=== PATIENT | female | born 1940 | race Caucasian/White ===

== ENCOUNTER 2017-04-19 12:41 | Emergency (ER) | payer MEDICARE | END 2017-04-19 14:43 | disposition home or self-care (01) | LOC: ER 12:41 | DX: M54.16 Radiculopathy, lumbar region (principal); E11.9 Type 2 diabetes mellitus without complications; E03.9 Hypothyroidism, unspecified; Z90.49 Acquired absence of other specified parts of digestive tract; Z98.51 Tubal ligation status; Z98.42 Cataract extraction status, left eye; Z98.41 Cataract extraction status, right eye; Z87.891 Personal history of nicotine dependence; Z98.890 Other specified postprocedural states | CPT/HCPCS: 99284 ==

== ENCOUNTER 2017-08-12 08:39 | Day surgery (SDC) | payer MEDICARE ==
[~2017-08-12 08:39] MED LIST: DEXAMETHASONE SOD PHOS 4 MG/ML VIAL; LIDOCAINE 1% PF 2 ML VIAL. ID; MORPHINE SULFATE 2 MG/ML DISP.SYRIN. IV; ONDANSETRON PF 4 MG/2 ML VIAL. IV; PROCHLORPERAZINE 10 MG/2 ML VIAL. IV; fentaNYL PF VIAL 100 MCG/2 ML VIAL IV; methylPREDNISolone ACETATE 80 MG/ML VIAL.
[2017-08-12] MEDS ORDERED: ONDANSETRON PF 4 MG/2 ML VIAL. (08:43)
[2017-08-12] MEDS ORDERED: LIDOCAINE 2% PF Vial for OR 5 ML VIAL. (08:43)
[2017-08-12] MEDS ORDERED: DEXAMETHASONE SOD PHOS 20 MG/5 ML VIAL. (08:43)
[2017-08-12] MEDS ORDERED: fentaNYL PF VIAL 100 MCG/2 ML VIAL (08:43)
[2017-08-12] MEDS ORDERED: PROPOFOL 20 ML IV (08:43)
[2017-08-12 09:14] LABS: POC GLUCOSE 89 mg/dL (70-99)
[2017-08-12] MEDS: IV RINGERS,LACTATED 1000ML 1,000 ML IV (09:19)
[2017-08-12] MEDS ORDERED: PHENYLEPHRINE in 0.9% NACL PF 1 MG/10 ML SYRINGE. IV (11:00)
[2017-08-12] MEDS ORDERED: SEVOFLURANE 61 TO 120 MINUTES. IH (11:22)
[2017-08-12] MEDS: BUPIVACAINE 0.5% 50 ML VIAL. (11:44)
[2017-08-12] MEDS: LIDOCAINE 1% PF 30 ML VIAL. (11:45)
== END 2017-08-12 14:38 | disposition home or self-care (01) ==
LOC: SURG 08:39
DX: M20.31 Hallux varus (acquired), right foot (principal); M20.41 Other hammer toe(s) (acquired), right foot; I10 Essential (primary) hypertension; E66.9 Obesity, unspecified; Z68.32 Body mass index [BMI] 32.0-32.9, adult; E78.00 Pure hypercholesterolemia, unspecified; I48.91 Unspecified atrial fibrillation; M19.90 Unspecified osteoarthritis, unspecified site; Z90.49 Acquired absence of other specified parts of digestive tract; Z98.51 Tubal ligation status; Z98.890 Other specified postprocedural states; Z98.42 Cataract extraction status, left eye; Z98.41 Cataract extraction status, right eye; Z96.1 Presence of intraocular lens; E03.9 Hypothyroidism, unspecified; F41.9 Anxiety disorder, unspecified; Z87.891 Personal history of nicotine dependence; Z96.653 Presence of artificial knee joint, bilateral
CPT/HCPCS: 28285; 73630; 82962; A7015; C1713; J0690; J1040; J1100; J2001; J2370; J2405; J2704; J3010; J3490; J7120

== ENCOUNTER → 2020-08-24 | Outpatient (CLI) | payer MEDICARE ==
[2018-02-10 15:00] VITALS: BP 100/48
[~2020-08-24] MED LIST changes: +AMIO200T6 PO; +AMOX1TAB58 PO; +ASCO100019 PO; +ASCO500T4 PO; +ASPI-482 PO; +ATOR10TA PO; +BIOT5000 PO; -DEXAMETHASONE SOD PHOS 4 MG/ML VIAL; +DIPH25CA58 PO; +ERYT30GE2 TP; +ESTR30CR VG; +FISH1CAP PO; +FLEC100T PO; +FLUT9.9S NS; +GABA300C18 PO; +GADOTERATE 7.5 MMOL/15ML VIAL. IVP ONE; +GLUC1TAB71 PO; +HYDR-2761 PO; +HYDR-2769 PO; +LACT1CAP19 PO; +LEVO200T PO; -LIDOCAINE 1% PF 2 ML VIAL. ID; +LINE600T12 PO; +LORC10TA PO; +MELA10CA PO; +MELATONIN PO; +METAMUCIL425 GM PO; +METH4TAB2 PO; -MORPHINE SULFATE 2 MG/ML DISP.SYRIN. IV; +MULT-246 PO; +NAPR-514 PO; +OMEP40CA7 PO; -ONDANSETRON PF 4 MG/2 ML VIAL. IV; +OXYB-36 PO; -PROCHLORPERAZINE 10 MG/2 ML VIAL. IV; +TRAM50TA PO; +UBIQ100C2 PO; +VITA150T PO; +WARF2.5T2 PO; +[UNRECOGNIZED DRUG - REMARK] PO; +[UNRECOGNIZED DRUG - REMARK] PO; -fentaNYL PF VIAL 100 MCG/2 ML VIAL IV; -methylPREDNISolone ACETATE 80 MG/ML VIAL.
[2020-08-24 14:02] LABS: CREATININE 0.6 mg/dL (0.6-1.0); GFR 96.7
--- NOTE | 2020-08-24 15:54 | RAD ---
EXAMINATION: MRI abdomen without and with IV contrast. INDICATION: Pancreatic cyst. Further evaluation. TECHNIQUE: Multiplanar multisequence MRI of the abdomen performed with and without IV contrast. COMPARISON: CT abdomen and pelvis dated 05/06/2020 and multiple priors. FINDINGS: Normal size and morphology of the liver with homogeneous enhancement. No suspicious focal h epatic lesion. No steatosis or deposition. Cholecystectomy. Central intrahepatic and extrahepatic rahul iary ductal dilation with smooth tapering distally, most likely secondary to post cholecystectomy sta tus. Common bile duct measures up to 1.3 cm. Unremarkable spleen. Diffuse pancreatic parenchymal atrophy with loss of normal bright T1 signal intensity heterogeneous e nhancement, compatible with sequelae of chronic pancreatitis. Innumerable variable size cystic lesion s scattered throughout the pancreas, the largest in the pancreatic head measures 2.0 cm (series 9 chacorta ge 20), some of these cysts demonstrate communication with normal caliber main pancreatic duct. No di screte soft tissue component or solid masses. No adrenal nodule. Both kidneys demonstrate normal symmetric enhancement. Right lower pole 1.4 cm sim ple renal cyst, unchanged. Mild bilateral hydronephrosis and hydroureter to the level of the imaged b ladder, likely new in comparing with prior CT exam report. There is an ill-defined 5.8 x 6.0 cm right retroperitoneal mass with heterogeneous T2 and T1 signal intensity with dark T2 and bright T1 rim wi th diffusion restriction (series 7 image 26). This lesion is probably new in comparing with prior CT exam report. No bowel dilation. No lymphadenopathy in the abdomen by size criteria. Nonspecific nonenlarged upper abdominal lymph nodes, likely reactive. No ascites. Normal caliber abdominal aorta. Mesenteric arteri es and portal vein are patent. No suspicious osseous lesion. Posterior hardware fusion in the lumbar spine. Unremarkable visualized lung bases. IMPRESSION: 1. Sequelae of chronic pancreatitis with innumerable variable size cystic lesions scattered throughou t the pancreas measuring up to 2.0 cm; some of which demonstrate communication with normal caliber ma in pancreatic duct. 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 Recommend annual follow-up with MRI/MRCP. 2. Mild bilateral hydronephrosis with dilated imaged ureters and asymmetric delayed left renal excret ion, new since prior exam. Findings may relate to chronic outlet obstruction. Clinical correlation is advised. Recommend urology consultation. 3. Right retroperitoneal 6 cm mass with heterogeneous signal intensity, suggesting of an evolving hem atoma. This mass is new since May 2020. Consider correlation with recent trauma or intervention. Re commend follow-up in 2-[address] abdomen to ensure resolution. 4. Other chronic/incidental findings, as described above. Electronically signed by: David Alarcon MD (08/24/2020 3:52 PM) [facility]
== END ==
LOC: MRI 13:27
PROVIDERS: ATTEND Surgery
DX: K86.1 Other chronic pancreatitis (principal); N13.30 Unspecified hydronephrosis; K86.2 Cyst of pancreas; Z90.49 Acquired absence of other specified parts of digestive tract
CPT/HCPCS: 36415; 74183; 82565; 84520; A9575

== ENCOUNTER 2020-10-22 16:10 | Emergency (ER) | payer MEDICARE ==
[~2020-10-22] VITALS: Ht 170.2 cm; Wt 102.0 kg
[~2020-10-22 16:10] MED LIST changes: -GADOTERATE 7.5 MMOL/15ML VIAL. IVP ONE
[2020-10-22 16:37] LABS: BASO % 0 % (0-3); EOS # 0.2 x10^3/uL (0.0-0.7); EOS % 4 % (0-3); HEMATOCRIT 24.7 % (36.0-47.0); HEMOGLOBIN 8.2 g/dL (12.0-15.5); LYMPH # 0.7 x10^3/uL (1.0-4.8); LYMPH % 15 % (24-48); MEAN CORPUSCULAR HEMOGLOBIN 31 pg (25-35); MEAN CORPUSCULAR HGB CONC 33 g/dL (31-37); MEAN CORPUSCULAR VOLUME 92 fL (79-100); MONO # 0.6 x10^3/uL (0.0-1.1); MONO % 14 % (0-9); NEUT # 3.1 x10^3/uL (1.8-7.7); NEUT % 66 % (31-73); PLATELET COUNT 279 x10^3/uL (140-400); RED BLOOD COUNT 2.69 x10^6/uL (3.50-5.40); RED CELL DISTRIBUTION WIDTH 14.4 % (11.5-14.5); WHITE BLOOD COUNT 4.6 x10^3/uL (4.0-11.0)
[2020-10-22 16:54] LABS: CALCIUM 8.2 mg/dL (8.5-10.1); CREATININE 0.7 mg/dL (0.6-1.0); GFR 80.9; POTASSIUM 4.5 mmol/L (3.5-5.1)
[2020-10-22 16:59] LABS: ALBUMIN 2.6 g/dL (3.4-5.0); TOTAL BILIRUBIN 0.3 mg/dL (0.2-1.0); TOTAL PROTEIN 5.3 g/dL (6.4-8.2)
[2020-10-22] MEDS ORDERED: IOHEXOL 350 MG/ML 100 ML VIAL. IV ONE (17:00)
[2020-10-22] MEDS ORDERED: CONTRAST GIVEN. MC PRN (17:00)
[2020-10-22 17:07] LABS: PROTHROMBIN TIME PATIENT 14.1 SEC (11.7-14.0)
[2020-10-22 17:33] LABS: CREATININE ISTAT 0.6 mg/dL (0.5-1.4); HEMOGLOBIN ISTAT 7.8 g/dL (12-15); ION CA ISTAT 1.07 mmol/L (1.13-1.32)
[2020-10-22 17:44] LABS: D-DIMER 0.57 ug/mlFEU (0.00-0.50)
--- NOTE | 2020-10-22 17:52 | PDOC2 ---
CONSULT Date of Consult Date of Consult DATE: 10/22/20 TIME: 17:51 Reason for Consult Reason for Consult: VB History of Present Illness Reason for Visit: The pt is a 80y s/p colpocleisis who presented to the ER with heavy vaginal bleeding. The pt underwent the procedure on 09/28/[address] Gonzalez. She is on Eliquis for A-fib. They stopped the med a few days prior to the procedure. After the procedure She restarted the med a few days later. A couple wks after the surgery she called the office b/c she was having heavy bleeding than expected. She was seen in the office and her exam was reassuring. That Friday she presented to the ER with heavy vaginal bleeding. During her 3 day hospital course, she required packing and received 2U pRBC. During the hospital course they stopped her Eliquis. When she was d/luis a Sun, she was told to not restart the Eliquis until Fri. She had a hospital f/u with Dr. Gonzalez on Friday where her packing was removed. Since the ER she has had minimal bleeding, until this am when she began to spot. Around noon she began to have heavy bleeding. In the ER she was found to have a Hgb of 8.2. She has continued to have brisk bleeding in the ER. Her vagina was packed. Discussed stabilizing and transferring with the ER. The ER contacted Emmanuel Gonzalez who recommended CT angio. On the way to the CT the pt was have SBP below 60, but was maintained her LOC. PMH: AF, DM PSH: BTL, back, nasal, pacemaker, appy, gagan, tonsil, eye All: NKDA OBHx: 3 x TSVD Manager Science: LMP ~50y No h/o ERT/HRT SH: no tob, no EtOH FH: Alzheimers, AF, DM Past Medical History Cardiovascular: AFIB, HTN, Hyperlipidemia Family History Family History: Other Social History ALCOHOL: none Drugs: None Current Medications Current Medications Current Medications Iohexol (Omnipaque 350 Mg/ml) 90 ml 1X ONCE IV Last administered on 10/22/20at 17:00; Start 10/22/20 at 17:00; Stop 10/22/20 at 17:01; Status DC Info (CONTRAST GIVEN -- Rx MONITORING) 1 each PRN DAILY PRN MC SEE COMMENTS; Start 10/22/20 at 17:00; Stop 10/24/20 at 16:59 Active Scripts Active Augmentin 500-125 Tablet (Amoxicillin/Potassium Clav) 1 Each Tablet 1 Tab PO BID 14 Days Zyvox (Linezolid) 600 Mg Tablet 600 Mg PO BID 14 Days Culturelle (Lactobacillus Rhamnosus Gg) 1 Each Cap.sprink 1 Cap PO BID 14 Days Tramadol Hcl 50 Mg Tablet 50 Mg PO PRN Q6HRS PRN 6 Days Reported Oxybutynin Chloride Er (Oxybutynin Chloride) 5 Mg Tab.er.24 1 Tab PO DAILY Flecainide Acetate 100 Mg Tablet 1 Tab PO BID Ubiquinol 100 Mg Capsule 100 Mg PO DAILY Gabapentin (Gabapentin) 300 Mg Capsule 300 Mg PO TID Coumadin (Warfarin Sodium) 2.5 Mg Tablet 1 Tab PO DAILY Alternating 2.5mg and 5mg Metamucil (Psyllium Seed) 425 Gm Powder 425 Gm PO DAILY PRN Aspir 81 (Aspirin) 81 Mg Tablet.dr 81 Mg PO DAILY Synthroid (Levothyroxine Sodium) 200 Mcg Tablet 200 Mcg PO DAILYAC Allergies Allergies: Coded Allergies: No Known Drug Allergies (Unverified , 08/11/17) Physical Exam General: Alert, Oriented X3, Cooperative, No acute distress HEENT: PERRLA, Mucous membr. moist/pink Lungs: Clear to auscultation, Normal air movement Heart: Regular rate, Normal S1, Normal S2, No murmurs Abdomen: Normal bowel sounds, Soft, No tenderness, No hepatosplenomegaly, No masses Extremities: No clubbing, No cyanosis, No edema, Normal pulses, No tender ness/swelling Skin: No rashes, No breakdown Neuro: Normal gait, Normal speech, Normal tone, Sensation intact, Reflexes 2+ Psych/Mental Status: Mental status NL, Mood NL Vitals VITALS Vital Signs Date Time Temp Pulse Resp B/P (MAP) Pulse Ox O2 Delivery O2 Flow Rate FiO2 10/22/20 16:38 98.1 89 18 131/67 (65) 99 Room Air 98.1 Labs Labs Laboratory Tests Test 10/22/20 16:30 10/22/20 17:31 White Blood Count 4.6 x10^3/uL (4.0-11.0) Red Blood Count 2.69 x10^6/uL (3.50-5.40) Hemoglobin 8.2 g/dL (12.0-15.5) Hematocrit 24.7 % (36.0-47.0) Mean Corpuscular Volume 92 fL (79-100) Mean Corpuscular Hemoglobin 31 pg (25-35) Mean Corpuscular Hemoglobin Concent 33 g/dL (31-37) Red Cell Distribution Width 14.4 % (11.5-14.5) Platelet Count 279 x10^3/uL (140-400) Neutrophils (%) (Auto) 66 % (31-73) Lymphocytes (%) (Auto) 15 % (24-48) Monocytes (%) (Auto) 14 % (0-9) Eosinophils (%) (Auto) 4 % (0-3) Basophils (%) (Auto) 0 % (0-3) Neutrophils # (Auto) 3.1 x10^3/uL (1.8-7.7) Lymphocytes # (Auto) 0.7 x10^3/uL (1.0-4.8) Monocytes # (Auto) 0.6 x10^3/uL (0.0-1.1) Eosinophils # (Auto) 0.2 x10^3/uL (0.0-0.7) Basophils # (Auto) 0.0 x10^3/uL (0.0-0.2) Prothrombin Time 14.1 SEC (11.7-14.0) Prothromb Time International Ratio 1.1 (0.8-1.1) Activated Partial Thromboplast Time 32 SEC (24-38) Fibrinogen 331 mg/dL (200-440) D-Dimer (Amira) 0.57 ug/mlFEU (0.00-0.50) Sodium Level 140 mmol/L (136-145) Potassium Level 4.5 mmol/L (3.5-5.1) Chloride Level 105 mmol/L (98-107) Carbon Dioxide Level 31 mmol/L (21-32) Anion Gap 4 (6-14) 18 mmol/L (6-14) Blood Urea Nitrogen 15 mg/dL (7-20) Creatinine 0.7 mg/dL (0.6-1.0) Estimated GFR (Cockcroft-Gault) 80.9 BUN/Creatinine Ratio 21 (6-20) Glucose Level 141 mg/dL (70-99) 176 mg/dL (70-99) Calcium Level 8.2 mg/dL (8.5-10.1) Total Bilirubin 0.3 mg/dL (0.2-1.0) Aspartate Amino Transf (AST/SGOT) 16 U/L (15-37) Alanine Aminotransferase (ALT/SGPT) 18 U/L (14-59) Alkaline Phosphatase 66 U/L (46-116) Total Protein 5.3 g/dL (6.4-8.2) Albumin 2.6 g/dL (3.4-5.0) Albumin/Globulin Ratio 1.0 (1.0-1.7) Bedside Hemoglobin 7.8 g/dL (12-15) Bedside Hematocrit 23 % (36-40) Bedside Sodium 139 mmol/L (135-145) Bedside Potassium 6.0 mmol/L (3.5-5.0) Bedside Chloride 104 mmol/L (98-110) Bedside Total CO2 24 mmol/L (23-32) Bedside Blood Urea Nitrogen 15 mg/dL (8-26) Bedside Creatinine 0.6 mg/dL (0.5-1.4) Bedside Ionized Calcium (Teodoro) 1.07 mmol/L (1.13-1.32) Laboratory Tests Test 10/22/20 16:30 10/22/20 17:31 White Blood Count 4.6 x10^3/uL (4.0-11.0) Red Blood Count 2.69 x10^6/uL (3.50-5.40) Hemoglobin 8.2 g/dL (12.0-15.5) Hematocrit 24.7 % (36.0-47.0) Mean Corpuscular Volume 92 fL (79-100) Mean Corpuscular Hemoglobin 31 pg (25-35) Mean Corpuscular Hemoglobin Concent 33 g/dL (31-37) Red Cell Distribution Width 14.4 % (11.5-14.5) Platelet Count 279 x10^3/uL (140-400) Neutrophils (%) (Auto) 66 % (31-73) Lymphocytes (%) (Auto) 15 % (24-48) Monocytes (%) (Auto) 14 % (0-9) Eosinophils (%) (Auto) 4 % (0-3) Basophils (%) (Auto) 0 % (0-3) Neutrophils # (Auto) 3.1 x10^3/uL (1.8-7.7) Lymphocytes # (Auto) 0.7 x10^3/uL (1.0-4.8) Monocytes # (Auto) 0.6 x10^3/uL (0.0-1.1) Eosinophils # (Auto) 0.2 x10^3/uL (0.0-0.7) Basophils # (Auto) 0.0 x10^3/uL (0.0-0.2) Prothrombin Time 14.1 SEC (11.7-14.0) Prothromb Time International Ratio 1.1 (0.8-1.1) Activated Partial Thromboplast Time 32 SEC (24-38) Fibrinogen 331 mg/dL (200-440) D-Dimer (Amira) 0.57 ug/mlFEU (0.00-0.50) Sodium Level 140 mmol/L (136-145) Potassium Level 4.5 mmol/L (3.5-5.1) Chloride Level 105 mmol/L (98-107) Carbon Dioxide Level 31 mmol/L (21-32) Anion Gap 4 (6-14) 18 mmol/L (6-14) Blood Urea Nitrogen 15 mg/dL (7-20) Creatinine 0.7 mg/dL (0.6-1.0) Estimated GFR (Cockcroft-Gault) 80.9 BUN/Creatinine Ratio 21 (6-20) Glucose Level 141 mg/dL (70-99) 176 mg/dL (70-99) Calcium Level 8.2 mg/dL (8.5-10.1) Total Bilirubin 0.3 mg/dL (0.2-1.0) Aspartate Amino Transf (AST/SGOT) 16 U/L (15-37) Alanine Aminotransferase (ALT/SGPT) 18 U/L (14-59) Alkaline Phosphatase 66 U/L (46-116) Total Protein 5.3 g/dL (6.4-8.2) Albumin 2.6 g/dL (3.4-5.0) Albumin/Globulin Ratio 1.0 (1.0-1.7) Bedside Hemoglobin 7.8 g/dL (12-15) Bedside Hematocrit 23 % (36-40) Bedside Sodium 139 mmol/L (135-145) Bedside Potassium 6.0 mmol/L (3.5-5.0) Bedside Chloride 104 mmol/L (98-110) Bedside Total CO2 24 mmol/L (23-32) Bedside Blood Urea Nitrogen 15 mg/dL (8-26) Bedside Creatinine 0.6 mg/dL (0.5-1.4) Bedside Ionized Calcium (Teodoro) 1.07 mmol/L (1.13-1.32) Assessment/Plan Assessment/Plan Assessment: 80y s/p colpocleisis with heavy vaginal bleeding Recommendations: 1.) S/p colpocleisis this is the second episode of heavy bleeding since the surgery. Hypotensive at this time. Currently receiving blood. ER spoke with Urogyn who performed the surgery and recommended CT. Bleeding likely secondary to Eliquis. 2.) VB vagina currently packed, receiving blood as reported above 3.) Hypotension advised to contact hospitalists if pt not transferred 4.) AF on Eliquis, advised to consult cardiology if pt not transferred 5.) Pacemaker 6.) LUKAS LINDO MD Oct 22, 2020 17:52
--- NOTE | 2020-10-22 18:29 | RAD ---
Exam: CT of abdomen and pelvis with contrast INDICATION: Ureteral bleeding TECHNIQUE: Sequential axial images through the abdomen and pelvis obtained following the administrati on 90 mL of Omni 350 IV contrast. Sagittal and coronal reformatted images were reconstructed from the axial data and reviewed. Exposure: One or more of the following in the visualized dose reduction techniques were utilized for this examination: 1. Automated exposure control 2. Adjustment of the MA and/or KV according to patient size 3. Use of iterative of reconstructive technique Comparisons: MRI abdomen 08/24/2020 FINDINGS: Heart size is normal. No pericardial effusion. Visualized lung bases are clear. No pleural effusion. Liver, spleen, and adrenals are unremarkable. Numerous cystic lesions noted in the pancreas. No pancr eatic ductal dilatation identified. Kidneys demonstrate symmetric enhancement. No perinephric inflammation or hydronephrosis. No renal or ureteral calculi are identified. Bladder is partially distended. Diaz balloon is noted in the bladder. Small amount of air is also se en in the bladder. Uterus is nonenlarged. The vagina is distended with heterogenous material in a small amount of air. T here is a focus of active extravasation noted along the left lateral wall of the vagina seen on serie s 4 image [id number]. No abnormal adnexal mass. Large and small bowel are unremarkable. Heart amount stool is noted in the colon. Appendix is noniden tified. No free intra-abdominal air or fluid. No obstruction. Abdominal aorta has a normal course and caliber. Abdominal vasculature is patent. No enlarged intra-abdominal lymph nodes are identified. No suspicious osseous lesions or acute fractures. IMPRESSION: 1. There is a focus of active extravasation noted at the lower third of the vagina along the left la teral wall as described above. Direct feeding vessel is not identified however there is a distal bran ch of the COLLEEN which courses adjacent to the area of extravasation. 2. Vagina is distended with heterogenous material may relate to packing material/hemorrhage. 3. No evidence for acute hemorrhage identified within the abdomen or pelvis. 4. 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 RESULT CODE: (C) Electronically signed by: Bon Alfaro MD (10/22/2020 6:26 PM) [facility]
[2020-10-22 18:48] LABS: CREATININE ISTAT 0.5 mg/dL (0.5-1.4); HEMOGLOBIN ISTAT 9.5 g/dL (12-15); ION CA ISTAT 1.03 mmol/L (1.13-1.32); POTASSIUM ISTAT 4.5 mmol/L (3.5-5.0)
[2020-10-22] MEDS ORDERED: ONDANSETRON PF 4 MG/2 ML VIAL. ONE (19:11)
[2020-10-22] MEDS ORDERED: ONDANSETRON PF 4 MG/2 ML VIAL. IVP ONE (19:15)
--- NOTE | 2020-10-22 19:20 | PHYS DOC ---
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 fib on Eliquis with pacemaker, obesity with history of colpocleisis 3 to 4 weeks ago transmission with Dr. Gonzalez, presents to the ED brought in by EMS with complaints of "I felt something, maybe a pop," with associated heavy vaginal bleeding. Patient states she had stopped her Eliquis for the procedure and had similar vaginal bleeding a week ago at [facility] where she was transfused 2 units. Restarted her Eliquis a few days ago. No h/o blood transfusion reactions. Review of Systems: Review of Systems: Constitutional: Denies fever or chills. [] Eyes: Denies change in visual acuity. [] HENT: Denies nasal congestion or sore throat. [] Respiratory: Denies cough or shortness of breath. [] Cardiovascular: Denies chest pain or edema. [] GI: Denies nausea, vomiting, bloody stools or diarrhea. [] : Denies dysuria or flank pain Musculoskeletal: Denies back pain or joint pain. [] Integument: Denies rash or diaphoresis Neurologic: Denies headache, focal weakness or sensory changes. [] Endocrine: Denies polyuria or polydipsia. [] Lymphatic: Denies swollen glands. [] Psychiatric: Denies depression or anxiety. [] Heart Score: C/O Chest Pain: No Risk Factors: Risk Factors: DM, Current or recent (<one month) smoker, HTN, HLP, family history of CAD, obesity. Risk Scores: Score 0 - 3: 2.5% MACE over next 6 weeks - Discharge Home Score 4 - 6: 20.3% MACE over next 6 weeks - Admit for Clinical Observation Score 7 - 10: 72.7% MACE over next 6 weeks - Early Invasive Strategies Current Medications: Current Medications Medications (Trade) Dose Ordered Sig/Breanne Start Time Stop Time Status Last Admin Dose Admin Info (CONTRAST GIVEN -- Rx MONITORING) 1 each PRN DAILY PRN 10/22/20 17:00 10/24/20 16:59 Iohexol (Omnipaque 350 Mg/ml) 90 ml 1X ONCE 10/22/20 17:00 10/22/20 17:01 DC 10/22/20 17:00 90 ML Allergies: Allergies: Allergies Coded Allergies Type Severity Reaction Last Updated Verified No Known Drug Allergies 08/11/17 No Physical Exam: PE: Constitutional: no acute distress, initial BP wnl MAP dropped to 57 HENT: Normocephalic, atraumatic, Eyes: EOMI, conjunctiva normal, no discharge. Neck: Normal range of motion, supple, Cardiovascular: S1/2 present, HR 91 then 94 then 107 Lungs & Thorax: Speaking in full sentences, bilateral equal chest rise, no tachypnea or increased work of breathing Abdomen: soft, some suprapubic tenderness/discomfort, pt reported to rn her pelvis/lower abdomen felt larger than normal Skin: Warm, dry Extremities: No tenderness, no cyanosis, Neurologic: Alert and oriented X 3, normal motor function, normal sensory function, no focal deficits noted. [] Psychologic:judgement normal, very calm/mature Pelvic: Chaperoned by RN, patient sitting in considerable amount of vaginal clots, removed clots from vaginal orifice and applied slight pressure-brisk warm bright red blood poured over my finger, this worsened with valsalva, no brisk bleeding from urethral meatus with Valsalva Current Patient Data: Labs: Laboratory Tests Test 10/22/20 16:30 10/22/20 17:31 10/22/20 18:45 White Blood Count 4.6 x10^3/uL (4.0-11.0) Red Blood Count 2.69 x10^6/uL (3.50-5.40) L Hemoglobin 8.2 g/dL (12.0-15.5) L Hematocrit 24.7 % (36.0-47.0) L Mean Corpuscular Volume 92 fL (79-100) Mean Corpuscular Hemoglobin 31 pg (25-35) Mean Corpuscular Hemoglobin Concent 33 g/dL (31-37) Red Cell Distribution Width 14.4 % (11.5-14.5) Platelet Count 279 x10^3/uL (140-400) Neutrophils (%) (Auto) 66 % (31-73) Lymphocytes (%) (Auto) 15 % (24-48) L Monocytes (%) (Auto) 14 % (0-9) H Eosinophils (%) (Auto) 4 % (0-3) H Basophils (%) (Auto) 0 % (0-3) Neutrophils # (Auto) 3.1 x10^3/uL (1.8-7.7) Lymphocytes # (Auto) 0.7 x10^3/uL (1.0-4.8) L Monocytes # (Auto) 0.6 x10^3/uL (0.0-1.1) Eosinophils # (Auto) 0.2 x10^3/uL (0.0-0.7) Basophils # (Auto) 0.0 x10^3/uL (0.0-0.2) Prothrombin Time 14.1 SEC (11.7-14.0) H Prothrombin Time INR 1.1 (0.8-1.1) Activated Partial Thromboplast Time 32 SEC (24-38) Fibrinogen 331 mg/dL (200-440) D-Dimer (Amira) 0.57 ug/mlFEU (0.00-0.50) H Sodium Level 140 mmol/L (136-145) Potassium Level 4.5 mmol/L (3.5-5.1) Chloride Level 105 mmol/L (98-107) Carbon Dioxide Level 31 mmol/L (21-32) Anion Gap 4 (6-14) L 18 mmol/L (6-14) H 16 mmol/L (6-14) H Blood Urea Nitrogen 15 mg/dL (7-20) Creatinine 0.7 mg/dL (0.6-1.0) Estimated GFR (Cockcroft-Gault) 80.9 BUN/Creatinine Ratio 21 (6-20) H Glucose Level 141 mg/dL (70-99) H 176 mg/dL (70-99) H 135 mg/dL (70-99) H Calcium Level 8.2 mg/dL (8.5-10.1) L Total Bilirubin 0.3 mg/dL (0.2-1.0) Aspartate Amino Transferase (AST) 16 U/L (15-37) Alanine Aminotransferase (ALT) 18 U/L (14-59) Alkaline Phosphatase 66 U/L (46-116) Total Protein 5.3 g/dL (6.4-8.2) L Albumin 2.6 g/dL (3.4-5.0) L Albumin/Globulin Ratio 1.0 (1.0-1.7) POC Hemoglobin 7.8 g/dL (12-15) L 9.5 g/dL (12-15) L POC Hematocrit 23 % (36-40) L 28 % (36-40) L POC Sodium 139 mmol/L (135-145) 140 mmol/L (135-145) POC Potassium 6.0 mmol/L (3.5-5.0) H 4.5 mmol/L (3.5-5.0) POC Chloride 104 mmol/L (98-110) 105 mmol/L (98-110) POC Total CO2 24 mmol/L (23-32) 24 mmol/L (23-32) POC Blood Urea Nitrogen 15 mg/dL (8-26) 16 mg/dL (8-26) POC Creatinine 0.6 mg/dL (0.5-1.4) 0.5 mg/dL (0.5-1.4) POC Ionized Calcium (Teodoro) 1.07 mmol/L (1.13-1.32) L 1.03 mmol/L (1.13-1.32) L Laboratory Tests 10/22/20 16:30 Laboratory Tests 10/22/20 16:30 10/22/20 17:31 10/22/20 18:45 Vital Signs: Vital Signs Date Time Temp Pulse Resp B/P (MAP) Pulse Ox O2 Delivery O2 Flow Rate FiO2 10/22/20 16:38 98.1 89 18 131/67 (65) 99 Room Air 98.1 EKG: EKG: [] Radiology/Procedures: Radiology/Procedures: []IMAGING REPORT Signed PATIENT: MILLIE STUART ACCOUNT: [id number] : 1940 LOCATION: ER AGE: 80 SEX: F EXAM STATUS: REG ER ORD. PHYSICIAN: KAREEN MORENO DO REASON: Urethral bleeding/brisk PROCEDURE: CT ANGIOGRAPHY ABD AND PELVIS Exam: CT of abdomen and pelvis with contrast INDICATION: Ureteral bleeding TECHNIQUE: Sequential axial images through the abdomen and pelvis obtained following the administration 90 mL of Omni 350 IV contrast. Sagittal and coronal reformatted images were reconstructed from the axial data and reviewed. Exposure: One or more of the following in the visualized dose reduction techniques were utilized for this examination: 1. Automated exposure control 2. Adjustment of the MA and/or KV according to patient size 3. Use of iterative of reconstructive technique Comparisons: MRI abdomen 08/24/2020 FINDINGS: Heart size is normal. No pericardial effusion. Visualized lung bases are clear. No pleural effusion. Liver, spleen, and adrenals are unremarkable. Numerous cystic lesions noted in the pancreas. No pancreatic ductal dilatation identified. Kidneys demonstrate symmetric enhancement. No perinephric inflammation or hydronephrosis. No renal or ureteral calculi are identified. Bladder is partially distended. Diaz balloon is noted in the bladder. Small amount of air is also seen in the bladder. Uterus is nonenlarged. The vagina is distended with heterogenous material in a small amount of air. There is a focus of active extravasation noted along the left lateral wall of the vagina seen on series 4 image 1433. No abnormal adnexal mass. Large and small bowel are unremarkable. Heart amount stool is noted in the colon. Appendix is nonidentified. No free intra-abdominal air or fluid. No obstruction. Abdominal aorta has a normal course and caliber. Abdominal vasculature is patent. No enlarged intra-abdominal lymph nodes are identified. No suspicious osseous lesions or acute fractures. IMPRESSION: 1. There is a focus of active extravasation noted at the lower third of the vagina along the left lateral wall as described above. Direct feeding vessel is not identified however there is a distal branch of the COLLEEN which courses adjacent to the area of extravasation. 2. Vagina is distended with heterogenous material may relate to packing material/hemorrhage. 3. No evidence for acute hemorrhage identified within the abdomen or pelvis. 4. 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 RESULT CODE: (C) Electronically signed by: Bon Roque MD (10/22/2020 6:26 PM) [facility] DICTATED and SIGNED BY: BON ROQUE MD DATE: 10/22/20 [id number] 0 Course & Med Decision Making: Course & Med Decision Making Pertinent Labs and Imaging studies reviewed. (See chart for details) Concern for arterial vaginal hemorrhage requiring massive transfusion protocol, initiated very shortly upon ED arrival. After 2 units prbc, patients' systolic per manual blood pressure was in the 60s. I discussed CTA abd/pelvis findings with Dr. Roque, radiologist and with Dr. Gonzalez, pt's urogynecologist. Pts' sbp genesis to 114 after 4U prbc and 2.3L NS but her MAP dropped again after she bled through her vaginal packing that came out. Dr. Byrne repacked vaginal orifice and 2 more units of PRBCs were ordered. Patient emergently transferred to [facility] for higher level of care/surgical intervention with Dr. Gonzalez. Patient critical condition and agrees with this plan. I have spoken with the patient and/or caregivers. I have explained the patient's condition, diagnosis and treatment plan based on the information available to me at this time. I have answered the patient's and/or caregivers questions and answered any concerns. The patient and/or caregivers have as good an understanding of the patient's diagnosis, condition and treatment plan as can be expected at this point. The patient has been stabilized within the capability of the emergency department. The patient will be transported for further care and management or will be moved to an observation or inpatient service. I have communicated with the staff or medical practitioner taking over this patient's care. Critical Care: Authorized and Performed by: Kareen Moreno DO Total critical care time: approximately 120 minutes Due to a high probability of clinically significant, life threatening deterioration, the patient required my highest level of preparedness to intervene emergently and I personally spent this critical care time directly and personally managing the patient. This critical care time included obtaining a history; examining the patient; pulse oximetry; ventilator management if necessary; ordering and review of studies; arranging urgent treatment with development of a management plan; evaluation of patient's response to treatment; frequent reassessment; discussion with patient/family; and, discussions with other providers. This critical care time was performed to assess and manage the high probability of imminent, life-threatening deterioration that could result in multi-organ failure. It was exclusive of separately billable procedures and treating other patients and teaching time. Please see MDM section and the rest of the note for further information on patient assessment and treatment. Dragon Disclaimer: Dragon Disclaimer: This electronic medical record was generated, in whole or in part, using a voice recognition dictation system. Departure Departure Impression: Primary Impression: Postoperative haemorrhage of vagina Additional Impressions: Atrial fibrillation Hemodynamic instability Hemorrhage requiring transfusion Disposition: 02 SHORT TERM HOSPITAL (To [facility]) Condition: CRITICAL Referrals: KAREN FARIAS DO (PCP) KAREEN MORENO DO Oct 22, 2020 19:20
[2020-10-22 19:25] VITALS: BP 53/30
== END 2020-10-22 19:43 | disposition short-term general hospital (02) ==
LOC: ER 16:10
DX: N99.821 Postprocedural hemorrhage of a genitourinary system organ or structure following other procedure (principal); T80.89XA Other complications following infusion, transfusion and therapeutic injection, initial encounter; I48.91 Unspecified atrial fibrillation; Z95.0 Presence of cardiac pacemaker; E11.9 Type 2 diabetes mellitus without complications; E03.9 Hypothyroidism, unspecified; Z90.89 Acquired absence of other organs; Z90.49 Acquired absence of other specified parts of digestive tract; Z98.51 Tubal ligation status; Z87.891 Personal history of nicotine dependence; Y84.8 Other medical procedures as the cause of abnormal reaction of the patient, or of later complication, without mention of misadventure at the time of the procedure; Y92.89 Other specified places as the place of occurrence of the external cause; I45.10 Unspecified right bundle-branch block
CPT/HCPCS: 36415; 36430; 74174; 80047; 80053; 85025; 85379; 85384; 85610; 85730; 86850; 86900; 86901; 86920; 96374; 99291; 99292; J2405; P9016; Q9967